=== PATIENT | female | born 1950 | race Caucasian/White ===

== ENCOUNTER 2021-07-02 08:57 | Day surgery (SDC) | payer OTHER, SELFPAY ==
[2021-07-02 09:21] VITALS: BP 126/73; PULSE 80; RESP 16; TEMP 37.1; O2SAT 99
[2021-07-02] MEDS: Tropicam./Phenyleph. (1/2.5%) 5 ML BTL OS ×3 (09:32→09:42)
--- NOTE | 2021-07-02 09:40 | W.ANESPRE ---
General Info Date of Service Date Performed: 07/02/21 Height: 5 ft 4 in Weight: 60.4 kg Body Mass Index (BMI): 22.8 Surgical Procedure: Operation Date: 07/02/21 11:40 Proposed Procedure Side Surgeon p Cataract Extraction with IOL Implant Left Joshua Perez MD Meds Allergies and Home Medications Allergies Allergy/AdvReac Type Severity Reaction Status Date / Time bee venom protein (honey bee) Allergy Severe Other (See Verified 07/02/21 09:18 Comment) Penicillins Allergy Intermediate Hives Verified 07/02/21 09:18 lisinopril AdvReac Intermediate cough Verified 07/02/21 09:29 Home Medication Medication Instructions Recorded anastrozole 1 mg tablet 1 mg PO DAILY 06/30/21 atorvastatin 40 mg tablet 40 mg PO DAILY 06/30/21 cyclobenzaprine 10 mg tablet 10 mg PO DIRECTED 06/30/21 epinephrine 0.3 mg/0.3 mL 0.3 mg IM DIRECTED 06/30/21 injection, auto-injector (EpiPen) lorazepam 0.5 mg tablet 0.5 mg PO ONCE 06/30/21 losartan 50 mg-hydrochlorothiazide 1 tab PO DAILY 06/30/21 12.5 mg tablet trazodone 50 mg tablet 50 mg PO HS PRN 06/30/21 Current Visit Medications: Current Medications Generic Name Dose Route Start Last Admin Trade Name Freq PRN Reason Stop Dose Admin Acetaminophen 1,000 mg 07/02/21 06:00 Acetaminophen 500 Mg Tab PO Q4H PRN PRN Miscellaneous Medication 0 ml 07/02/21 06:00 Prednisolone 1%, Moxifloxacin 0.5%, Nepafenac 0.1% 5ml Btl OS DIRECTED COUNTS INCLUDE 234 BEDS AT THE [facility] Miscellaneous Medication 0 ml 07/02/21 06:00 07/02/21 09:37 Tropicam./Phenyleph. (1/2.5%) 5 Ml Btl OS 1 drp DIRECTED COUNTS INCLUDE 234 BEDS AT THE [facility] Administration Tetracaine HCl 0 ml 07/02/21 06:00 Tetracaine 0.5% 4 Ml Btl OS DIRECTED [facility] Medical History Medical History (Updated 07/02/21 @ 10:03 by Antoine Alberto CRNA) Aerophobia Bilateral cataracts Cardiomegaly Echo 01/2021 EF 60-65%, LEFT VENTRICLE NORMAL SIZED. mILD CONCENTRIC LVH WAS NOTED. LEFT ATRIUM WAS MILDY DILATED, MILD-MODERATE AR/MR/TR Chronic low back pain Environmental allergies Estrogen receptor positive Gait disturbance GERD (gastroesophageal reflux disease) Hearing loss Hepatitis C antibody test negative HTN (hypertension) Invasive ductal carcinoma of breast Mixed hyperlipidemia Ocular migraine SULAIMAN (obstructive sleep apnea) Raynaud disease Sleep disturbance Urinary incontinence Weakness Surgical History Surgical History Hx of esophagogastroduodenoscopy Hx of hysterectomy Hx of left breast biopsy Hx of partial mastectomy Hx of tonsillectomy Tobacco Smoking/Tobacco Use Status: Former Tobacco Use Alcohol Alcohol Intake: current Alcohol intake frequency: a few times a week Alcohol type: wine Substance Use Substance use: Never Substance use type: does not use Vital Signs and Lab Results Vital Signs Most Recent Vital Signs in EMR: Most Recent Vital Signs Temp Pulse Resp BP Pulse Ox 37.1 C 80 16 126/73 99 07/02/21 09:21 07/02/21 09:21 07/02/21 09:21 07/02/21 09:21 07/02/21 09:21 Lab Results Blood Type / Crossmatch: No Data to Display Complete Blood Count: No Data to Display Complete Metabolic Panel: No Data to Display Liver Function Panel: No Data to Display Coagulation Panel: No Data to Display Cardiac Panel: No Data to Display Arterial Blood Gas: No Data to Display Venous Blood Gas: No Data to Display Pancreas Panel: No Data to Display Thyroid Panel: No Data to Display Infectious Disease: No Data to Display Blood Cultures: No Data to Display Toxicology Panel: No Data to Display Anesthesia Assessment and Plan Anesthesia History Personal History: No History of Anesthesia Complications Family History: No Family History of Anesthesia Complications Exercise Tolerance Exercise Tolerance: Metabolic Equivalents>4 Cardiac & Pulmonary Exam Cardiac Exam: Normal S1/S2 Heart Sounds Pulmonary Exam: Clear Bilateral Breath Sounds Implantable Cardiac Device Does patient have a Pacemaker or an ICD?: No Airway Exam Known Difficult Airway: No Mallampati Class: 2 Mouth Opening: Normal (> 3cm) Thyromental Distance: Greater than 3 cm Neck Range of Motion: Full ROM Neck Circumference: Normal Teeth Condition: Normal Dentition ASA Classification ASA Score: ASA 3 Emergency Case?: No NPO Status NPO Status: NPO Clears >2 hours, Solids >8 hours Anesthesia Plan Resuscitation Status: Full Code Anesthesia Technique: MAC Anesthesia Airway Planned: Natural Airway Monitors Used: Standard Monitors
[2021-07-02 10:53] VITALS: BMI 22.8
[2021-07-02] MEDS: Tetracaine 0.5% 4 ML BTL OS (11:04)
[2021-07-02] MEDS: Duovisc Viscoelastic System EACH 1 EACH (11:05)
[2021-07-02] MEDS: Balanced Salt Soln.-PLUS 500 ML BAG (11:05)
[2021-07-02] MEDS: Lidocaine 2% Jelly 6 ML SYR (11:06)
[2021-07-02] MEDS: Povidone-Iodine Ophth 30 ML BTL (11:08)
[2021-07-02 11:22] VITALS: BP 111/71; PULSE 83; RESP 16; TEMP 36.9; O2SAT 98
--- NOTE | 2021-07-02 11:23 | W.PM.DSUDISC ---
Discharge Plan Disposition Patient Disposition: HOME Condition: Good Discharge Details Attending Provider: Joshua Perez Primary Care Provider: Amanda Grey Home Meds and New Rx's Prescriptions: No Action cyclobenzaprine 10 mg Tablet 10 mg PO DIRECTED 0RF atorvastatin 40 mg Tablet 40 mg PO DAILY 0RF anastrozole 1 mg Tablet 1 mg PO DAILY 0RF trazodone 50 mg Tablet 50 mg PO HS PRN0RF lorazepam 0.5 mg Tablet 0.5 mg PO ONCE 0RF epinephrine [EpiPen] 0.3 mg/0.3 mL Auto-Injector 0.3 mg IM DIRECTED 0RF losartan-hydrochlorothiazide 50-12.5 mg Tablet 1 tab PO DAILY 0RF Discharge Orders Discharge Orders: Discharge Order (Routine); Ordered 07/02/21 Ordered By: Joshua Perez DS: Diagnosis Discharge Diagnosis (1) Nuclear sclerotic cataract of left eye: Status: Resolved (2) Cortical cataract of left eye: Status: Resolved
--- NOTE | 2021-07-02 11:24 | W.PM.OP ---
Date of service: 07/02/21 Time of Service: 11:24 Operative Note Operative Note DATE OF PROCEDURE: 07/02/21 PRE-OP DIAGNOSIS: Nuclear/cortical cataract, left eye POST-OP DIAGNOSIS: same PROCEDURE: Cataract extraction using phacoemulsification with intraocular lens implant, left eye SURGEON: Joshua Perez ANESTHESIA TYPE: Local By Surgeon and MAC Refer to Anesthesia Record PATHOLOGY: none sent COMPLICATIONS: None Patient was transported to: same day Patient's condition: stable Implants: Ajay and Ajay / [employer] Tecnis [id number] Indications: Progressive decreased vision due to cataract, left eye Procedure Description: CATARACT SURGERY OPERATIVE REPORT PREOPERATIVE DIAGNOSIS: 1. Nuclear/cortical cataract, left eye POSTOPERATIVE DIAGNOSIS: Same OPERATION: 1. Cataract extraction using phacoemulsification with posterior chamber intraocular lens implant, left eye. IOL: IOL Billing Machine Operator/Model: Ajay & Ajay / RIKKI Tecnis [id number] IOL Power: + 21.5 diopters IOL Serial Number: [id number] Optic Diameter: 6.0 mm Haptic/Overall Diameter: 13.0 mm PHACO INFO: Damián Presidiourion Vision System with OZil and Active Fluidics Cumulative Dispersed Energy (CDE): 6.58 seconds SURGEON: Joshua Perez MD, JACKIE ANESTHESIA: Monitored A [facility] (MAC), with local sub-tenon's anesthetic infiltration COMPLICATIONS: None SPECIMENS: None INDICATIONS FOR PROCEDURE: The patient is a 70-year-old lady with history of diminished visual acuity in her left eye secondary to the development of nuclear and cortical cataract. She is significantly symptomatic that she desires cataract surgery and attempt to improve and maximize her vision. PROCEDURE: The correct surgical eye was identified and marked as the left eye and the pupil was dilated in the preoperative area using mydriatics and cycloplegics. The dilated pupil size was 7.0 mm. Oral sedation was administered in the form of an Imprimis MKO Melt (midazolam 3mg/ketamine 25mg/ondansetron 2mg). The patient was brought to the operating room where cardiopulmonary monitoring was instituted and surgical time-out was performed, confirming the correct operative eye and IOL power. Topical anesthesia was administered and ophthalmic povidone-iodine 5% was instilled into the conjunctival fornices. Lidocaine gel was applied to the cornea and the blaire-ocular area was prepped with Betadine 10% solution and draped in the usual sterile fashion for intraocular surgery, including an aperture drape. A Tegaderm transparent film dressing was cut in half and used to cover the lashes and lid margins. Care was taken to sequester the lashes and lid margins under the Tegaderm dressing. A lid speculum was placed between the lids of the operative eye and the Damián LuxOR Revalia operating microscope was maneuvered into position. Nika scissors were then used to make a conjunctival buttonhole approximately 6mm posterior to the limbus in the inferonasal quadrant. Blunt dissection was carried out to expose bare sclera, and a blunt-tipped sub-tenon?s anesthesia cannula was introduced and passed posteriorly along the globe where non-preserved plain lidocaine was injected into posterior sub-Tenon?s space. A sideport knife was used to make a paracentesis port superiorly/superiortemporally. Intraocular phenylephrine/lidocaine was injected int the anterior chamber.. The anterior chamber was filled with viscoelastic. A 2.4mm keratome knife was used to create a half-thickness groove at the limbus and then to construct a three-plane near-clear corneal tunnel extending 2.0mm into clear cornea at the 3:00 position. A flap was raised on the anterior capsule and capsulorhexis forceps were used to complete a continuous curvilinear capsulorhexis of 5.5 mm. Balanced salt solution was then used to perform cortical cleaving hydrodissection and nuclear hydrodelineation until the lens could be freely rotated within the capsular bag. The lens nucleus was then disassembled and removed within the capsular bag and iris plane using phacoemulsification. Residual cortical material was removed using the 45-degree angled silicone I/A tip with 0.3mm port. The posterior capsule was carefully polished to remove as much residual lens epithelial cells as safely possible. The capsular bag was then inflated and the anterior chamber deepened with viscoelastic. The lens implant described above was inserted into the capsular bag using the RIKKI [place] Injector. A Kuglen hook was used to dial the IOL into position. Residual viscoelastic was then removed first from posterior to the IOL, then from the anterior chamber using the I/A handpiece. The lens implant was noted to center nicely within the capsular bag. The incisions were stromally hydrated, and the anterior chamber was reformed using BSS. Then 0.5cc of moxifloxacin 1.0mg/ml were injected into the capsular bag and anterior chamber. The incisions were checked with a Weck spear and found to be secure. Several drops of ophthalmic povidone-iodine 5% were then applied to the eye followed by two drops of Imprimis combination prednisolone/moxifloxacin/nepafenac solution. The drapes were removed and a clear plastic protective eye shield was placed over the eye. The patient was then returned to Same Day Surgery in stable condition.
--- NOTE | 2021-07-02 11:41 | W.ANESPOSTOP ---
Postoperative Evaluation Date, Time and Location Date Performed: 07/02/21 Time Performed: 11:30 Patient Location: Day Surgery Unit Vital Signs Most Recent Imported Vital Signs: Most Recent Vital Signs Temp Pulse Resp BP Pulse Ox 36.9 C 83 16 111/71 98 07/02/21 11:22 07/02/21 11:22 07/02/21 11:22 07/02/21 11:22 07/02/21 11:22 Pain Score Most Recent Pain Score: Most Recent Pain Score Pain Level 0 07/02/21 11:22 Assessment Mental Status: Awake (Alert & Oriented to Patient Baseline) Airway and Respiratory Function: Patent airway with normal (patient baseline) respiratory exam Cardiovascular Function: Hemodynamically Stable Hydration Status: Adequately Hydrated Nausea & Vomiting: No Nausea or Vomiting Pain: Pt. Denies Any Pain Peripheral Nerve Block: Patient did not receive a nerve block
[2021-07-02 11:55] VITALS: BP 117/69; PULSE 83; RESP 16; TEMP 36.9; O2SAT 95
== END 2021-07-02 12:05 | disposition home or self-care (01) ==
PROVIDERS: PCP Family Medicine; Visit Provider Ophthalmology
PROC: (CPT 66984; principal; 2021-07-02 11:30)
DX: H25.12 Age-related nuclear cataract, left eye (principal); E78.5 Hyperlipidemia, unspecified; I10 Essential (primary) hypertension; G47.33 Obstructive sleep apnea (adult) (pediatric); K21.9 Gastro-esophageal reflux disease without esophagitis
CPT/HCPCS: 66984; V2632

== ENCOUNTER 2021-07-12 08:57 | Day surgery (SDC) | payer OTHER, SELFPAY ==
[2021-07-12 09:24] VITALS: BP 127/72; PULSE 82; RESP 16; TEMP 36.7; O2SAT 98
[2021-07-12] MEDS: Tropicam./Phenyleph. (1/2.5%) 5 ML BTL OD ×3 (09:24→09:36)
--- NOTE | 2021-07-12 09:55 | ANES.PREOP_ITS ---
General Info Date of Service Date Performed: 07/12/21 Height: 5 ft 4 in Weight: 60 kg Body Mass Index (BMI): 22.6 Surgical Procedure: Operation Date: 07/12/21 10:40 Proposed Procedure Side Surgeon p Cataract Extraction with IOL Implant Right Joshua Perez MD Meds Allergies and Home Medications Allergies Allergy/AdvReac Type Severity Reaction Status Date / Time bee venom protein (honey bee) Allergy Severe Other (See Verified 07/12/21 09:21 Comment) Penicillins Allergy Intermediate Hives Verified 07/12/21 09:21 lisinopril AdvReac Intermediate cough Verified 07/12/21 09:21 Home Medication Medication Instructions Recorded anastrozole 1 mg tablet 1 mg PO DAILY 06/30/21 atorvastatin 40 mg tablet 40 mg PO DAILY 06/30/21 cyclobenzaprine 10 mg tablet 10 mg PO DIRECTED 06/30/21 epinephrine 0.3 mg/0.3 mL 0.3 mg IM DIRECTED 06/30/21 injection, auto-injector (EpiPen) lorazepam 0.5 mg tablet 0.5 mg PO ONCE 06/30/21 losartan 50 mg-hydrochlorothiazide 1 tab PO DAILY 06/30/21 12.5 mg tablet trazodone 50 mg tablet 50 mg PO HS PRN 06/30/21 alendronate 70 mg tablet 70 mg PO DIRECTED 07/08/21 Current Visit Medications: Current Medications Generic Name Dose Route Start Last Admin Trade Name Freq PRN Reason Stop Dose Admin Acetaminophen 1,000 mg 07/12/21 06:00 Acetaminophen 500 Mg Tab PO Q4H PRN PRN Miscellaneous Medication 0 ml 07/12/21 06:00 Prednisolone 1%, Moxifloxacin 0.5%, Nepafenac 0.1% 5ml Btl OD DIRECTED [facility] Miscellaneous Medication 0 ml 07/12/21 06:00 07/12/21 09:36 Tropicam./Phenyleph. (1/2.5%) 5 Ml Btl OD 1 drp DIRECTED [facility] Administration Tetracaine HCl 0 ml 07/12/21 06:00 Tetracaine 0.5% 4 Ml Btl OD DIRECTED [facility] PFSH Active Problems Active Problems: Problem Status Onset Code Nuclear sclerotic cataract of left eye H25.12 Cortical cataract of left eye H26.9 Nuclear sclerotic cataract of right eye H25.11 Cortical cataract of right eye H26.9 Medical History Medical History Aerophobia Bilateral cataracts Cardiomegaly Echo 01/2021 EF 60-65%, LEFT VENTRICLE NORMAL SIZED. mILD CONCENTRIC LVH WAS NOTED. LEFT ATRIUM WAS MILDY DILATED, MILD-MODERATE AR/MR/TR Chronic low back pain Environmental allergies Estrogen receptor positive Gait disturbance GERD (gastroesophageal reflux disease) Hearing loss Hepatitis C antibody test negative HTN (hypertension) Invasive ductal carcinoma of breast Mixed hyperlipidemia Ocular migraine SULAIMAN (obstructive sleep apnea) Raynaud disease Sleep disturbance Urinary incontinence Weakness Surgical History Surgical History (Updated 07/12/21 @ 09:19 by Mary Schafer) Hx of cataract surgery Hx of esophagogastroduodenoscopy Hx of hysterectomy Hx of left breast biopsy Hx of partial mastectomy Hx of tonsillectomy Tobacco Smoking/Tobacco Use Status: Former Tobacco Use Alcohol Alcohol Intake: current Alcohol intake frequency: a few times a week Alcohol type: wine Substance Use Substance use: Never Substance use type: does not use Vital Signs and Lab Results Vital Signs Most Recent Vital Signs in EMR: Most Recent Vital Signs Temp Pulse Resp BP Pulse Ox 36.7 C 82 16 127/72 98 07/12/21 09:24 07/12/21 09:24 07/12/21 09:24 07/12/21 09:24 07/12/21 09:24 Lab Results Blood Type / Crossmatch: No Data to Display Complete Blood Count: No Data to Display Complete Metabolic Panel: No Data to Display Liver Function Panel: No Data to Display Coagulation Panel: No Data to Display Cardiac Panel: No Data to Display Arterial Blood Gas: No Data to Display Venous Blood Gas: No Data to Display Pancreas Panel: No Data to Display Thyroid Panel: No Data to Display Infectious Disease: No Data to Display Blood Cultures: No Data to Display Toxicology Panel: No Data to Display Anesthesia Assessment and Plan Anesthesia History Personal History: No History of Anesthesia Complications Family History: No Family History of Anesthesia Complications Exercise Tolerance Exercise Tolerance: Metabolic Equivalents>4 Cardiac & Pulmonary Exam Cardiac Exam: Normal S1/S2 Heart Sounds Pulmonary Exam: Clear Bilateral Breath Sounds Implantable Cardiac Device Does patient have a Pacemaker or an ICD?: No Airway Exam Known Difficult Airway: No Mallampati Class: 2 Mouth Opening: Normal (> 3cm) Thyromental Distance: Greater than 3 cm Neck Range of Motion: Full ROM Neck Circumference: Normal Teeth Condition: Normal Dentition ASA Classification ASA Score: ASA 3 Emergency Case?: No NPO Status NPO Status: NPO Clears >2 hours, Solids >8 hours Anesthesia Plan Resuscitation Status: Full Code Anesthesia Technique: MAC Anesthesia Airway Planned: Natural Airway Pain Management: Surgeon and patient request nerve block Monitors Used: Standard Monitors
[2021-07-12 10:30] VITALS: BMI 22.6
[2021-07-12] MEDS: Tetracaine 0.5% 4 ML BTL OD (10:53)
[2021-07-12] MEDS: Duovisc Viscoelastic System EACH 1 EACH (10:55)
[2021-07-12] MEDS: Balanced Salt Soln.-PLUS 500 ML BAG (10:55)
[2021-07-12] MEDS: Lidocaine 2% Jelly 6 ML SYR (10:56)
[2021-07-12] MEDS: Povidone-Iodine Ophth 30 ML BTL (10:57)
[2021-07-12 11:05] VITALS: BP 120/73; PULSE 92; RESP 16; TEMP 36.4; O2SAT 97
--- NOTE | 2021-07-12 11:07 | ROE_ITS ---
Date of service: 07/12/21 Time of Service: 11:08 Operative Note Operative Note DATE OF PROCEDURE: 10/26/20 PRE-OP DIAGNOSIS: Nuclear/cortical cataract, right eye POST-OP DIAGNOSIS: same PROCEDURE: Cataract extraction using phacoemulsification with intraocular lens implant, right eye SURGEON: Joshua Perez ANESTHESIA TYPE: Local By Surgeon and MAC Refer to Anesthesia Record ESTIMATED BLOOD LOSS: 0 PATHOLOGY: none sent COMPLICATIONS: None Patient was transported to: same day Patient's condition: stable Implants: Ajay & Ajay/RIKKI Tecnis [id number] Indications: Progressive visual loss due to cataract, right eye Procedure Description: CATARACT SURGERY OPERATIVE REPORT PREOPERATIVE DIAGNOSIS: 1. Nuclear/cortical cataract, right eye POSTOPERATIVE DIAGNOSIS: Same OPERATION: 1. Cataract extraction using phacoemulsification with posterior chamber intraocular lens implant, right eye. IOL: IOL Auxiliary Equipment Tender/Model: Ajay & Ajay / RIKKI Tecnis [id number] IOL Power: + 21.5 diopters IOL Serial Number: [id number] Optic Diameter: 6.0mm Haptic/Overall Diameter: 13.0mm PHACO INFO: Damián RECEPTA biopharmaurion Vision System with OZil and Active Fluidics Cumulative Dispersed Energy (CDE): 5.09 seconds SURGEON: Joshua Perez MD, JACKIE ANESTHESIA: Monitored Anesthesia Care (MAC), with local sub-tenon's anesthetic infiltration COMPLICATIONS: None SPECIMENS: None INDICATIONS FOR PROCEDURE: The patient is a 70-year old lady with history of diminished visual acuity in both eyes secondary to the development of bilateral nuclear and cortical cataract. She has already undergone cataract surgery in the left eye and is doing well postoperatively. She now presents for cataract surgery in the right eye. PROCEDURE: The correct surgical eye was identified and marked as the right eye and the pupil was dilated in the preoperative area using mydriatics and cycloplegics. The dilated pupil size was 7.0 mm. Oral sedation was administered in the form of an Imprimis MKO Melt (midazolam 3mg/ketamine 25mg/ondansetron 2mg). The patient was brought to the operating room where cardiopulmonary monitoring was instituted and surgical time-out was performed, confirming the correct operative eye and IOL power. Topical anesthesia was administered and ophthalmic povidone-iodine 5% was instilled into the conjunctival fornices. Lidocaine gel was applied to the cornea and the blaire-ocular area was prepped with Betadine 10% solution and draped in the usual sterile fashion for intraocular surgery, including an aperture drape. A Tegaderm transparent film dressing was cut in half and used to cover the lashes and lid margins. Care was taken to sequester the lashes and lid margins under the Tegaderm dressing. A lid speculum was placed between the lids of the operative eye and the Damián LuxOR [employer] operating microscope was maneuvered into position. Nika scissors were then used to make a conjunctival buttonhole approximately 6mm posterior to the limbus in the inferonasal quadrant. Blunt dissection was carried out to expose bare sclera, and a blunt-tipped sub-tenon?s anesthesia cannula was introduced and passed posteriorly along the globe where non- preserved plain lidocaine was injected into posterior sub-Tenon?s space. A sideport knife was used to make a paracentesis port inferotemporally. Intraocular phenylephrine/lidocaine was injected into the anterior chamber. The anterior chamber was filled with viscoelastic. A 2.4mm keratome knife was used to create a half-thickness groove at the limbus and then to construct a three- plane near-clear corneal tunnel extending 2.0mm into clear cornea superiortemporally. A flap was raised on the anterior capsule and capsulorhexis forceps were used to complete a continuous curvilinear capsulorhexis of 5.5 mm. Balanced salt solution was then used to perform cortical cleaving hydrodissection and nuclear hydrodelineation until the lens could be freely rotated within the capsular bag. The lens nucleus was then disassembled and removed within the capsular bag and iris plane using phacoemulsification. Residual cortical material was removed using the I/A handpiece. The posterior capsule was carefully polished to remove as much residual lens epithelial cells as safely possible. The capsular bag was then inflated and the anterior chamber deepened with viscoelastic. The lens implant described above was inserted into the capsular bag using the RIKKI [place] Injector. A Kuglen hook was used to dial the IOL into position. Residual viscoelastic was then removed first from posterior to the IOL, then from the anterior chamber using the I/A handpiece. The lens implant was noted to center nicely within the capsular bag. The incisions were stromally hydrated, and the anterior chamber was reformed using BSS. Then 0.5cc of moxifloxacin 1.0mg/ml were injected into the capsular bag and anterior chamber. The incisions were checked with a Weck spear and found to be secure. Several drops of ophthalmic povidone-iodine 5% were then applied to the eye followed by two drops of Imprimis combination prednisolone/moxifloxacin/nepafenac solution. The drapes were removed and a clear plastic protective eye shield was placed over the eye. The patient was then returned to Same Day Surgery in stable condition.
--- NOTE | 2021-07-12 11:07 | W.PM.DSUDISC ---
Discharge Plan Disposition Patient Disposition: HOME Condition: Good Discharge Details Attending Provider: Joshua Perez Primary Care Provider: Amanda Grey Home Meds and New Rx's Prescriptions: No Action alendronate 70 mg tablet 70 mg PO DIRECTED 0RF cyclobenzaprine 10 mg Tablet 10 mg PO DIRECTED 0RF atorvastatin 40 mg Tablet 40 mg PO DAILY 0RF anastrozole 1 mg Tablet 1 mg PO DAILY 0RF trazodone 50 mg Tablet 50 mg PO HS PRN0RF lorazepam 0.5 mg Tablet 0.5 mg PO ONCE 0RF epinephrine [EpiPen] 0.3 mg/0.3 mL Auto-Injector 0.3 mg IM DIRECTED 0RF losartan-hydrochlorothiazide 50-12.5 mg Tablet 1 tab PO DAILY 0RF Discharge Instructions Stand Alone Forms: Post-op Topical Cataract, Satish Guevara (DSU) Discharge Orders Discharge Orders: Discharge Order (Routine); Ordered 07/12/21 Ordered By: Joshua Perez DS: Diagnosis Discharge Diagnosis (1) Nuclear sclerotic cataract of right eye: Status: Resolved (2) Cortical cataract of right eye: Status: Resolved
--- NOTE | 2021-07-12 11:28 | W.ANESPOSTOP ---
Postoperative Evaluation Date, Time and Location Date Performed: 07/12/21 Time Performed: 11:07 Patient Location: Day Surgery Unit Vital Signs Most Recent Imported Vital Signs: Most Recent Vital Signs Temp Pulse Resp BP Pulse Ox 36.4 C L 92 H 16 120/73 97 07/12/21 11:05 07/12/21 11:05 07/12/21 11:05 07/12/21 11:05 07/12/21 11:05 Pain Score Most Recent Pain Score: Most Recent Pain Score Pain Level 0 07/12/21 11:05 Assessment Mental Status: Awake (Alert & Oriented to Patient Baseline) Airway and Respiratory Function: Patent airway with normal (patient baseline) respiratory exam Cardiovascular Function: Hemodynamically Stable Hydration Status: Adequately Hydrated Nausea & Vomiting: No Nausea or Vomiting Pain: Pt. Denies Any Pain Peripheral Nerve Block: Patient did not receive a nerve block
[2021-07-12 11:33] VITALS: BP 122/78; PULSE 90; RESP 16; TEMP 37.1; O2SAT 97
== END 2021-07-12 11:45 | disposition home or self-care (01) ==
PROVIDERS: PCP Family Medicine; Visit Provider Ophthalmology
PROC: (CPT 66984; principal; 2021-07-12 10:30)
DX: H25.11 Age-related nuclear cataract, right eye (principal); K21.9 Gastro-esophageal reflux disease without esophagitis; G47.33 Obstructive sleep apnea (adult) (pediatric); I73.00 Raynaud's syndrome without gangrene
CPT/HCPCS: 66984; V2632